=== PATIENT | male | born 1965 | race African-American/Black ===

== ENCOUNTER 2021-03-27 15:32 | Observation (INO) | payer SELFPAY ==
[2021-03-27] VITALS (14 sets, daily range): BP systolic 112–158; BP diastolic 83–98; PULSE 67–89; RESP 14–20; TEMP 36.4–36.7; O2SAT 98–100; BMI 33.5
--- NOTE | ~2021-03-27 | CT_ITS ---
EXAMINATION: CT abdomen pelvis w con DATE: 03/27/2021 17:32 INDICATION: Generalized abdominal pain. Dark tarry stools. Diarrhea. TECHNIQUE: Computed tomography (CT) of the abdomen and pelvis was performed with 100 cc Omnipaque 350 intravenous contrast. Automated exposure control and iterative reconstruction technique were employe d. Exam dose: 746.64 mGy-cm total exam DLP. COMPARISON: None. FINDINGS: The lung bases are clear. Normal heart size. No pericardial or pleural effusion. The liver, spleen, pancreas, and adrenal glands are unremarkable. Duplicated right kidney. The upper and lower pole ureters unite at the L4 level. Approximately 7 mm u pper pole right renal probable cyst 3.5 cm left renal cystic lesion with attenuation of 14 Hounsfield units. The margins are not sharp th roughout this lesion. Further evaluation is recommended by left renal ultrasound or MR examination. No urinary tract calculus or hydroureteronephrosis. Normal caliber of the abdominal aorta. No intraperitoneal or retroperitoneal or pelvic mass lesion or adenopathy or ascites. Normal appendix. There is a prominent amount of fecal material in the colon but no bowel obstruction. No bowel wall thickening, pneumatosis or intraperitoneal free air is detected. Moderate prostatomegaly. Urinary bladder is unremarkable. Small fat-containing umbilical hernia. Prominent degenerative spurring of the lower thoracic spine. No suspicious osteolytic or osteoblastic lesions are noted. IMPRESSION: 3.5 cm cystic lesion of left kidney; the margins are not sharply defined throughout the lesion; further evaluation by left renal ultrasound or MR examination is recommended Duplicated right kidney 7 mm upper pole right renal probable cyst Moderate prostate enlargement Reviewed, dictated and finalized at [facility]. Reviewed, dictated and finalized at location [facility]. IMPRESSION: 3.5 cm cystic lesion of left kidney; the margins are not sharply d efined throughout the lesion; further evaluation by left renal ultrasound or MR examination is recommended Duplicated right kidney 7 mm upper pole right renal probable cyst Moderate prostate enlargement
--- NOTE | ~2021-03-27 | US_ITS ---
EXAMINATION: US renal BI DATE: 03/28/2021 11:45 INDICATION: Renal cyst TECHNIQUE: Multiple ultrasound grayscale images of the kidneys were obtained. COMPARISON: CT dated 03/27/2021 FINDINGS: The right kidney measures 10.1 x 5.2 x 5.0 cm. The left kidney measures 9.3 x 6.4 x 5.6 cm. The kidne ys demonstrate normal echogenicity. 3.3 cm simple appearing cyst in the left kidney with smooth perip heral gunderson with no evident internal septations or soft tissue component. There is no hydronephrosis in either kidney. No stones identified. The bladder appears normal but is incompletely distended whi ch limits evaluation.. IMPRESSION: 1. 3.3 cm simple left renal cyst. Otherwise unremarkable study. Reviewed, dictated and finalized at location [facility].
--- NOTE | ~2021-03-27 | XR_ITS ---
XR chest 2V DATE: 03/27/2021 17:34 INDICATION: Midsternal chest pain, shortness of breath for 4 weeks, worsening last night TECHNIQUE: PA and lateral views COMPARISON: 06/30/2018 two-view chest FINDINGS: Heart size is within normal range. No hilar or mediastinal enlargement. No pulmonary infilt rate or consolidation, pleural effusion or pulmonary vascular congestion or pneumothorax. IMPRESSION: No active cardiac pulmonary disease Reviewed, dictated and finalized at location [facility].
--- NOTE | 2021-03-27 15:47 | ECG_ITS ---
Measurements Intervals [place] Rate: 86 P: 30 MS: 148 QRS: 7 QRSD: 89 T: 57 QT: 358 QTc: 430 Interpretive Statements SINUS RHYTHM DELAYED PRECORDIAL R/S TRANSITION NONSPECIFIC T-WAVE ABNORMALITY- HIGH LATERAL LEADS BORDERLINE ECG Electronically Signed On 03-27-2021 16:13:03 CDT by Parvez Bryson D.O.
[2021-03-27 16:16] LABS: Basophils Percent Auto 0.3 % (0.2-1.2); Eosinophils Absolute Auto 0.1 K/mm3 (0-0.3); Eosinophils Percent Auto 0.7 % (0-4.4); Hematocrit 35.9 % (42.0-52.0); Hemoglobin 12.3 g/dL (14.0-18.0); Immature Granulocyte Absolute 0.03 K/mm3 (0.00-0.031); Immature Granulocyte Percent A 0.4 % (0-0.5); Lymphocytes Absolute Auto 2.33 K/mm3 (0.9-3.2); Lymphocytes Percent Auto 31.1 % (18.3-44.2); Mean Corpuscular HGB Conc 34.3 g/dl (32-36); Mean Corpuscular Hemoglobin 30.4 pg (26-34); Mean Corpuscular Volume 88.9 fl (80-100); Mean Platelet Volume 11.9 fl (7.4-10.4); Monocytes Absolute Auto 0.6 K/mm3 (0.1-0.6); Monocytes Percent Auto 7.6 % (2.6-8.5); Neutrophils Absolute Auto 4.5 K/mm3 (1.3-6.7); Neutrophils Percent Auto 59.9 % (45.5-73.1); Platelet Count Result 204 k/mm3 (150-375); Red Blood Count 4.04 M/mm3 (4.6-6.20); Red Cell Distribution Width 14.3 % (11.5-14.5); White Blood Count 7.5 K/mm3 (4.5-10.0)
[2021-03-27 16:28] LABS: Alanine Aminotransferase 21 U/L (4-50); Albumin Level 4.1 g/dL (3.5-5.1); Alkaline Phosphatase 48 U/L (38-126); Anion Gap 6 mmol/L (8-16); Aspartate Amino Transferase 24 U/L (17-59); Bilirubin,Total < 0.1 mg/dL (0.2-1.3); Blood Urea Nitrogen 23 mg/dL (9-20); Calcium 9.1 mg/dL (8.4-10.2); Carbon Dioxide 28 mmol/L (22-30); Chloride 104 mmol/L (98-107); Estimated CRCL calculation 80 ml/min; Estimated Glomerular Filt Rate > 60; Glucose 123 mg/dL (65-110); Potassium 3.9 mmol/L (3.4-5.0); Sodium 138 mmol/L (137-145)
[2021-03-27 16:45] LABS: Troponin I < 0.012 ng/mL (0.000-0.034)
[2021-03-27] MEDS: SODIUM CHLORIDE 0.9% IV 1,000 ML 999 ML IV CONT (16:50)
[2021-03-27] MEDS: PANTOPRAZOLE SODIUM IV 40 MG VIAL 80 MG IV PUSH (16:50)
[2021-03-27 18:12] LABS: Lipase 222 U/L (23-300)
--- NOTE | 2021-03-27 19:58 | PC.NURSE ---
Stool sample does not need to be sent to lab per ER PA, hemacult stool sample done at bedside.
--- NOTE | 2021-03-27 20:10 | ED.GENADULT ---
HPI - General Adult General Chief complaint: Syncope <Annelise Miller PA-C - Last Filed: 03/27/21 20:52> Stated complaint: rectal bleeding <Annelise Miller PA-C - Last Filed: 03/27/21 20:52> Time Seen by Provider: 03/27/21 16:08 <Annelise Miller PA-C - Last Filed: 03/27/21 20:52> Source: patient and family () <FELISA Javed Last Filed: 03/27/21 20:52> Mode of arrival: ambulatory <Annelise Miller PA-C - Last Filed: 03/27/21 20:52> History of Present Illness HPI narrative: Patient presents with chief complaint of dark tarry stools over the past 2 to 3 days. Patient states yesterday he saw his primary care Dr. Roberts regarding his symptoms and a he stated he was going to refer him to a GI specialist but if his symptoms increase or worsen to come to the emergency department. Patient states today he feels weak and short of breath with a headache when he went to stand so his brought him to the emergency department. He states that he has had 2-3 large dark tarry stools. He reports pain to his epigastric area that is intermittent. He states the pain worsens when he eats. Patient denies history of GI bleeding. <Annelise Miller PA-C - Last Filed: 03/27/21 20:52> Related Data Home medications: Home Medications Medication Instructions Recorded Confirmed Miralax 1 packet PO DAILY 03/27/21 03/27/21 hydrochlorothiazide 25 mg PO DAILY 03/27/21 03/27/21 naproxen sodium [Aleve] 220 mg PO BID PRN 03/27/21 03/27/21 <FELISA Javed Last Filed: 03/27/21 20:52> Allergies/adverse reactions: Allergies Allergy/AdvReac Type Severity Reaction Status Date / Time No Known Allergies Allergy Unverified 06/13/18 10:21 <FELISA Javed Last Filed: 03/27/21 20:52> Review of Systems Review of Systems: CONSTITUTIONAL: Denies fever, chills, or sweats. EYES: Denies visual changes, redness, or discharge. ENT: Denies rhinorrhea, congestion, sore throat, or otalgia. CARDIOVASCULAR: Denies chest pain, palpitations, or edema. RESPIRATORY: Denies cough or dyspnea. GASTROINTESTINAL: Reports dark-colored stool Denies abdominal pain, nausea, vomiting, or diarrhea. GENITOURINARY: denies dysuria or hematuria. SKIN: Denies rash or itching. MUSCULOSKELETAL: Denies back pain, joint pain, or myalgia. NEUROLOGIC: Denies headache, numbness, dizziness, or weakness. PSYCHIATRIC: Denies anxiety or depression. <Annelise Miller PA-C - Last Filed: 03/27/21 20:52> [facility] Family History Family History: Family History (Updated 03/27/21 @ 22:23 by Janette Sharma RN) Other Unknown family medical history <Annelise Miller PA-C - Last Filed: 03/27/21 20:52> Social History Social History: Social History Smoking status: Never smoker Alcohol intake: never Substance use: never Substance use type: does not use Spiritual care concerns: No <Annelise Miller PA-C - Last Filed: 03/27/21 20:52> Exam Narrative: GENERAL: Well-appearing, well-nourished, and in no acute distress. HEAD: Normocephalic, atraumatic. EYES: PERRLA and EOMI. NECK: Supple. No adenopathy or masses. No carotid bruits or JVD CHEST: Clear to auscultation. No respiratory distress. No wheezes rales or rhonchi HEART: Regular rate and rhythm. No murmur heard. Normal peripheral pulses. ABDOMEN: Soft, nontender to palpation, nondistended, normal active bowel sounds. Hemoccult stool positive EXTREMITIES: Normal range of motion. No edema. SKIN: Warm, dry, no rash. NEURO: No focal deficits. Alert and oriented x3. PSYCH: Normal mood and affect. <Annelise Miller PA-C - Last Filed: 03/27/21 20:52> Course HEAD OF MATHEMATICS/PA Physician Supervision For this patient encounter, I reviewed the HEAD OF MATHEMATICS or PA documentation, treatment plan, and medical decision making; and I had [id number] time with this patient; sx most c/w ugib <Paramjit Gambino MD - Last Filed: 03/28/21 01:16> Vital Signs Vital signs: Vit
--- NOTE | 2021-03-27 21:31 | PM.IMHP ---
H&P: HPI History of Present Illness Date/Time: 03/27/21 21:31 Chief Complaint: Dark stools Narrative: This is a 56-year-old male with past medical history significant for hypertension. Patient presented to the emergency room due to 5 episodes of black tarry stools that started the day before. Patient states that he felt lightheaded dizzy and had to lay it in the bathroom floor he denies any hematemesis any epistaxis any hematochezia, he has been taking Aleve at home. He denies any nausea or vomiting has epigastric abdominal pain ,has had good appetite, no changes in stool character ,no weight loss ,no alcohol intake or tobacco use ,denies any syncope ,denies any fevers ,chills or rigors ,no cough ,no sputum production ,no shortness of breath. Preliminary workup shows a hemoglobin of 12 down from 17 from 2018 rest of workup has been essentially nonrevealing. Review of Systems Review of Systems: Black tarry stools Constitutional: Constitutional: Denies chills, Denies fatigue, Denies fever(s), Denies lethargy, Denies malaise, Denies poor appetite, Denies weakness and Denies weight loss Eyes: Eyes: Denies change in vision ENT: Denies dysphagia, Reports dizziness, Denies epistaxis, Denies nasal congestion, Denies nasal discharge, Denies nasal obstruction and Denies odynophagia Cardiovascular: Cardiovascular: Denies irregular heart rhythm, Denies claudication, Reports lightheadedness, Denies radiating jaw, neck or arm pain, Denies palpitations, Denies dyspnea, Denies dyspnea on exertion and Denies orthopnea Respiratory: Respiratory: Denies cough and Denies dyspnea Gastrointestinal: Gastrointestinal: Reports abdominal pain (Epigastric), Reports melena, Denies hematochezia, Denies change in bowel habits, Denies coffee ground emesis, Denies GI cramping, Denies dyspepsia, Denies heartburn, Denies diarrhea, Denies nausea and Denies vomiting Genitourinary: Genitourinary: Reports no additional male genitourinary complaints Musculoskeletal: Musculoskeletal: Reports no additional musculoskeletal complaints Integumentary/Breasts: Skin/Breast: Reports system reviewed and no additional complaints, except as docu Neurologic: Reports system reviewed and no additional complaints, except as documented Psychiatric: Psychiatric: Reports no additional psychiatric complaints Endocrine: Endocrine: Reports no additional endocrine complaints Hematologic/Lymphatic: Hematologic/Lymphatic: Reports no additional hematologic/lymphatic complaints Allergic/Immunologic: Allergic/Immunologic: Reports no additional allergic/immunologic complaints [facility] Family History Family History (Updated 03/27/21 @ 22:23 by Janette Sharma RN) Other Unknown family medical history Social History Social History Smoking status: Never smoker Alcohol intake: never Substance use: never Substance use type: does not use Spiritual care concerns: No Meds Home Medications and Allergies Home Medications Medication Instructions Recorded Confirmed Type Miralax 1 packet PO DAILY 03/27/21 03/27/21 History hydrochlorothiazide 25 mg PO DAILY 03/27/21 03/27/21 History naproxen sodium [Aleve] 220 mg PO BID PRN 03/27/21 03/27/21 History Allergies Allergy/AdvReac Type Severity Reaction Status Date / Time No Known Allergies Allergy Unverified 06/13/18 10:21 Vital Signs Vital Signs - 24 hr 03/27/21 15:44 03/27/21 16:45 03/27/21 17:20 Temperature 98.0 F Pulse Rate 89 87 80 Respiratory Rate 18 14 Blood Pressure 112/86 140/98 H Pulse Oximetry 99 99 03/27/21 17:45 03/27/21 18:10 03/27/21 18:11 Temperature Pulse Rate 83 78 85 Respiratory Rate 14 Blood Pressure 145/95 H 147/85 H 134/89 Pulse Oximetry 99 03/27/21 18:14 03/27/21 19:09 03/27/21 20:50 Temperature Pulse Rate 83 80 74 Respiratory Rate 14 14 Blood Pressure 147/95 H 144/83 H 155/95 H Pulse Oximetry 98 98 Exam Narrative: Laying in [place] Const:
--- NOTE | 2021-03-27 22:17 | ADMGEN ---
This patient, Chanell Smith, was admitted to 2 Medical Room 241-. Patient/family oriented to hospital policies and general routines including ID bracelet, bed and alarms, visiting hours, pain management, procedures, bathroom and other care routines, personal items, smoking policy, room service/diet, and visiting hours. Information on how to activate the Rapid Response Team has been discussed. Patient/Family are encouraged to report perceived risks to care and to ask questions if they do not understand what they are told or what they should do.
--- NOTE | 2021-03-27 23:23 | PC.NURSE ---
PT GIVING ME SHORT RESPONSES WHEN ATTEMPTING TO OBTAIN MEDICAL HISTORY, LANGUAGE BARRIER AND SEEMED TO BE ANNOYED BY MY QUESTIONS. DENIED ANY SIGNIFICANT MEDICAL HISTORY OR SYMPTOMS RELATED TO HIS CURRENT HOSPITALIZATION.
[2021-03-28] VITALS (8 sets, daily range): BP systolic 98–151; BP diastolic 60–92; PULSE 62–90; RESP 16–18; TEMP 36.1–36.9; O2SAT 98–100
[2021-03-28] MEDS: HYDROmorphone HCL INJ (*CRX) 1 MG/ML SYR 0.5 MG IV PUSH (01:51)
[2021-03-28 05:35] LABS: Hematocrit 34.2 % (42.0-52.0); Hemoglobin 11.6 g/dL (14.0-18.0)
--- NOTE | 2021-03-28 07:03 | WPDGICN ---
Assessment and Plan Assessment and plan (1) Acute GI bleeding: Code(s): K92.2 - Gastrointestinal hemorrhage, unspecified Status: Acute Assessment and Plan: Patient admitted the hospital with evidence for GI bleeding for 2 days with black melenic stools. His hemoglobin of 12 is felt to be stable however his previous blood work revealed a hemoglobin is 17 several years ago. Plan is for EGD to assess more thoroughly. Hemoglobin will be monitored. He will be kept on PPI therapy in the interim. GI Consult Note Consult date/time: 03/28/21 07:03 HPI: Chanell Smith is a 56 year old male Admitted to the hospital with melenic stools. Patient in usual state of health till Wednesday when he became acutely short of breath. He had weakness on exertion. Apparently had a near syncopal episode. His stools became blackish and this persisted. For this reason he came to the emergency room last evening. He was found to have a hemoglobin of 12. Vital signs were stable. But he had very dark tardy black melenic stools. Patient was subsequently admitted the hospital for evaluation. Patient denies abdominal pain but admits to a vague epigastric discomfort. His past medical history is noncontributory. Family history is noncontributory. He denies alcohol use. He does admit to occasional Naprosyn. He takes MiraLax for occasional constipation. Review of Systems Review of Systems: All systems reviewed & are unremarkable except as noted in HPI and below [facility] Family History Family History (Updated 03/27/21 @ 22:23 by Janette Sharma RN) Other Unknown family medical history Social History Social History Smoking status: Never smoker Alcohol intake: never Substance use: never Substance use type: does not use Spiritual care concerns: No Meds Home Medications and Allergies Home Medications Medication Instructions Recorded Confirmed Type Miralax 1 packet PO DAILY 03/27/21 03/27/21 History hydrochlorothiazide 25 mg PO DAILY 03/27/21 03/27/21 History naproxen sodium [Aleve] 220 mg PO BID PRN 03/27/21 03/27/21 History Allergies Allergy/AdvReac Type Severity Reaction Status Date / Time No Known Allergies Allergy Unverified 06/13/18 10:21 Vital Signs Vital Signs - 24 hr 03/27/21 15:44 03/27/21 16:45 03/27/21 17:20 Temperature 98.0 F Pulse Rate 89 87 80 Respiratory Rate 18 14 Blood Pressure 112/86 140/98 H Pulse Oximetry 99 99 03/27/21 17:45 03/27/21 18:10 03/27/21 18:11 Temperature Pulse Rate 83 78 85 Respiratory Rate 14 Blood Pressure 145/95 H 147/85 H 134/89 Pulse Oximetry 99 03/27/21 18:14 03/27/21 19:09 03/27/21 20:50 Temperature Pulse Rate 83 80 74 Respiratory Rate 14 14 Blood Pressure 147/95 H 144/83 H 155/95 H Pulse Oximetry 98 98 03/27/21 21:16 03/27/21 21:31 03/27/21 21:46 Temperature Pulse Rate 70 67 71 Respiratory Rate 20 15 15 Blood Pressure 155/97 H 137/90 145/87 H Pulse Oximetry 98 99 99 03/27/21 22:21 03/27/21 22:34 03/28/21 02:59 Temperature 97.5 F L 98.2 F Pulse Rate 78 78 63 Respiratory Rate 17 17 17 Blood Pressure 158/96 H 122/71 Pulse Oximetry 100 100 99 Exam Narrative: Physical exam reveals Vital Signs be stable. HEENT exam is unremarkable. Patient is anicteric. Lungs are clear to auscultation and percussion. Heart is without murmur or extra sounds. Abdominal exam bowel sounds are present soft nontender with no organomegaly. Digital external rectal exam is normal. Results Labs CBC & Chem 7: 03/28/21 04:46 03/27/21 16:06 Labs: Short CBC 03/27/21 03/28/21 Range/Units 16:06 04:46 WBC 7.5 (4.5-10.0) K/mm3 Hgb 12.3 L 11.6 L (14.0-18.0) g/dL Hct 35.9 L 34.2 L (42.0-52.0) % Plt Count 204 (150-375) k/mm3 [facility] 03/27/21 16:06 Sodium 138 Potassium 3.9 Chloride 104 Carbon Dioxide 28 BUN 23 H Creatinine 0.90 Glucose 123 H Calc
[2021-03-28] MEDS: LACTATED RINGERS 1,000 ML 150 ML IV CONT (13:20)
--- NOTE | 2021-03-28 13:25 | WPDANESEPP ---
Anes - Eval Pre Procedure Procedure: Operation Date: 03/28/21 14:00 Proposed Procedures p Esophagogastroduodenoscopy - Paramjit Izquierdo MD Date/Time: 03/28/21 13:25 Pre Op Diagnosis: GI Bleed Patient Data Age: 56 Gender: M Height: 1.68 m Weight: 94.2 kg Last Vital Signs Temp 97 F L 03/28/21 13:14 Pulse 76 03/28/21 13:14 Resp 18 03/28/21 13:14 BP 151/91 H 03/28/21 13:14 Pulse Ox 100 03/28/21 13:14 Allergies Allergy/AdvReac Type Severity Reaction Status Date / Time No Known Allergies Allergy Verified 03/28/21 13:12 Home Medications Medication Instructions Recorded Confirmed Type Miralax 1 packet PO DAILY 03/27/21 03/27/21 History hydrochlorothiazide 25 mg PO DAILY 03/27/21 03/27/21 History naproxen sodium [Aleve] 220 mg PO BID PRN 03/27/21 03/27/21 History Laboratory Tests 03/27/21 03/27/21 03/27/21 16:06 16:06 16:06 WBC 7.5 K/mm3 K/mm3 (4.5-10.0) RBC 4.04 M/mm3 L M/mm3 (4.6-6.20) Hgb 12.3 g/dL L g/dL (14.0-18.0) Hct 35.9 % L % (42.0-52.0) MCV 88.9 fl fl (80-100) MCH 30.4 pg pg (26-34) MCHC 34.3 g/dl g/dl (32-36) RDW 14.3 % % (11.5-14.5) Plt Count 204 k/mm3 k/mm3 (150-375) MPV 11.9 fl H fl (7.4-10.4) Immature Gran % (Auto) 0.4 % % (0-0.5) Neut % (Auto) 59.9 % % (45.5-73.1) Lymph % (Auto) 31.1 % % (18.3-44.2) [place] % (Auto) 7.6 % % (2.6-8.5) Eos % (Auto) 0.7 % % (0-4.4) Baso % (Auto) 0.3 % % (0.2-1.2) Lymph # (Auto) 2.33 K/mm3 K/mm3 (0.9-3.2) [place] # (Auto) 0.6 K/mm3 K/mm3 (0.1-0.6) Eos # (Auto) 0.1 K/mm3 K/mm3 (0-0.3) Baso # (Auto) 0.0 K/mm3 K/mm3 (0.0-0.1) Abs Immat Gran (auto) 0.03 K/mm3 K/mm3 (0.00-0.031) Absolute Neuts (auto) 4.5 K/mm3 K/mm3 (1.3-6.7) Absolute Nucleated RBC 0.0 K/mm3 K/mm3 (0.0-0.012) Nucleated RBC % 0.0 % % (0.0-0.2) Sodium 138 mmol/L mmol/L (137-145) Potassium 3.9 mmol/L mmol/L (3.4-5.0) Chloride 104 mmol/L mmol/L (98-107) Carbon Dioxide 28 mmol/L mmol/L (22-30) Anion Gap 6 mmol/L L mmol/L (8-16) BUN 23 mg/dL H mg/dL (9-20) Creatinine 0.90 mg/dL mg/dL (0.7-1.3) Estim Creat Clear Calc 80 ml/min ml/min Estimated GFR > 60 (59 - ) Glucose 123 mg/dL H mg/dL (65-110) Calcium 9.1 mg/dL mg/dL (8.4-10.2) Total Bilirubin Direct Bilirubin AST ALT Alkaline Phosphatase Troponin I Total Protein Albumin Lipase 222 U/L U/L (23-300) Blood Type Antibody Screen 03/27/21 03/27/21 03/27/21 16:06 16:06 16:06 WBC RBC Hgb Hct MCV MCH MCHC RDW Plt Count MPV Immature Gran % (Auto) Neut % (Auto) Lymph % (Auto) [place] % (Auto) Eos % (Auto) Baso % (Auto) Lymph # (Auto) [place] # (Auto) Eos # (Auto) Baso # (Auto) Abs Immat Gran (auto) Absolute Neuts (auto) Absolute Nucleated RBC Nucleated RBC % Sodium Potassium Chloride Carbon Dioxide Anion Gap BUN Creatinine Estim Creat Clear Calc Estimated GFR Glucose Calcium Total Bilirubin < 0.1 mg/dL L mg/dL (0.2-1.3) Direct Bilirubin 0.0 mg/dL mg/dL (0-0.3) AST 24 U/L U/L (17-59) ALT 21 U/L U/L (4-50) Alkaline Phosphatase 48 U/
--- NOTE | 2021-03-28 14:09 | SUR.PHASEII ---
Dr Izquierdo aware of positive hpylori, rapid urease
--- NOTE | 2021-03-28 14:33 | PC.NURSE ---
Returned from GI Lab. Report received from [ Marni].
--- NOTE | 2021-03-28 15:49 | PM.IMPN ---
Progress Note: A&P Assessment and Plan (1) Duodenal ulcer: Code(s): K26.9 - Duodenal ulcer, unspecified as acute or chronic, without hemorrhage or perforation Status: Acute Assessment and Plan: patient was noted to have a duodenal ulcer on EGD and was cauterized by Dr. Izquierdo - H pylori positive, Dr. Izqueirdo has started antibiotics and PPI therapy. Plan to continue such for 2 weeks - I spoke with the patient about the plan of care. He is agreeable to stay overnight to monitor his hemoglobin. If he has no further melena or drop in hemoglobin overnight, he can be discharged in the morning - he has no lightheadedness, dizziness or chest pain at this time - will increase diet for dinner and see how he tolerates it - would recommend stopping NSAIDs at discharge (2) H pylori ulcer: Code(s): K27.9 - Peptic ulcer, site unspecified, unspecified as acute or chronic, without hemorrhage or perforation; B96.81 - Helicobacter pylori [H. pylori] as the cause of diseases classified elsewhere Status: Acute Assessment and Plan: as above (3) Acute GI bleeding: Code(s): K92.2 - Gastrointestinal hemorrhage, unspecified Status: Acute Assessment and Plan: as above (4) Essential hypertension: Code(s): I10 - Essential (primary) hypertension Status: Acute Assessment and Plan: last blood pressure 146/92 - restart hydrochlorothiazide (5) Renal cyst: Code(s): N28.1 - Cyst of kidney, acquired Status: Acute Assessment and Plan: CT showed an abnormal cyst like structure and ultrasound was done which showed a simple cyst. No further workup indicated at this time Time Spent With Patient Time with patient: 25 - 35 minutes Subjective Date/time seen: 03/28/21 15:49 Interval history: Pt is a 56-year-old male here for GI bleed. Patient was seen this morning and this afternoon and is feeling well. He has not ate anything yet but is doing okay. He has not had any further melena since last night. Spoke with him about the plan care and he is agreeable to stay overnight to ensure he tolerates a diet and his hemoglobin remained stable since he had a bleeding ulcer found on EGD. I spoke with Dr. Izquierdo about the plan. Patient denies chest pain, shortness of breath, fevers, chills, nausea or vomiting. Review of Systems Review of Systems: All systems reviewed & are unremarkable except as noted in HPI and below Exam Narrative: General: Well developed well nourished patient in NAD HEENT: normocephalic Neck: supple Neuro: Alert and oriented x4 CV:RRR Resp:CTA Abd: Soft, non distended. No pain to palpation. Positive bowel sounds Extremities: No swelling, erythema, or pain to palpation. Objective Data Vital Signs Vital Signs: Vital Signs - 24 hr 03/27/21 16:45 03/27/21 17:20 03/27/21 17:45 Temperature Pulse Rate 87 80 83 Respiratory Rate 14 14 Blood Pressure 140/98 H 145/95 H Pulse Oximetry 99 99 03/27/21 18:10 03/27/21 18:11 03/27/21 18:14 Temperature Pulse Rate 78 85 83 Respiratory Rate Blood Pressure 147/85 H 134/89 147/95 H Pulse Oximetry 03/27/21 19:09 03/27/21 20:50 03/27/21 21:16 Temperature Pulse Rate 80 74 70 Respiratory Rate 14 14 20 Blood Pressure 144/83 H 155/95 H 155/97 H Pulse Oximetry 98 98 98 03/27/21 21:31 03/27/21 21:46 03/27/21 22:21 Temperature 97.5 F L Pulse Rate 67 71 78 Respiratory Rate 15 15 17 Blood Pressure 137/90 145/87 H 158/96 H Pulse Oximetry 99 99 100 03/27/21 22:34 03/28/21 02:59 03/28/21 10:22 Temperature 98.2 F Pulse Rate 78 63 Respiratory Rate 17 17 Blood Pressure 122/71 Pulse Oximetry 100 99 99 03/28/21 13:14 03/28/21 13:45 03/28/21 13:55 Temperature 97 F L Pulse Rate 76 90 84 Respiratory Rate 18 18 16 Blood Pressure 151/91 H 98/65 L 99/60 L Pulse Oximetry 100 100 100 03/28/21 14:05 03/28/21 15:00 Temperature 9
[2021-03-28] MEDS: hydroCHLOROthiazide 25 MG TABLET PO (16:39)
[2021-03-28] MEDS: PANTOPRAZOLE 40 MG TABLET PO (19:42)
[2021-03-28] MEDS: CLARITHROMYCIN 500 MG TABLET PO (19:42)
[2021-03-28] MEDS: AMOXICILLIN 500 MG CAPSULE 1000 MG PO (19:42)
[2021-03-29 04:48] VITALS: BP 133/85; PULSE 62; RESP 16; TEMP 37.2; O2SAT 100
[2021-03-29 05:44] LABS: Hematocrit 35.2 % (42.0-52.0); Hemoglobin 12.2 g/dL (14.0-18.0)
[2021-03-29] MEDS: hydroCHLOROthiazide 25 MG TABLET PO (08:27)
[2021-03-29] MEDS: AMOXICILLIN 500 MG CAPSULE 1000 MG PO (08:27)
[2021-03-29] MEDS: PANTOPRAZOLE 40 MG TABLET PO (08:27)
[2021-03-29] MEDS: CLARITHROMYCIN 500 MG TABLET PO (08:27)
--- NOTE | 2021-03-29 09:51 | PM.DS ---
DS: Admitting Diagnosis Discharge Date Today Admitting Diagnosis GI bleed DS: Discharge Diagnosis Discharge Diagnosis (1) Duodenal ulcer: Code(s): K26.9 - Duodenal ulcer, unspecified as acute or chronic, without hemorrhage or perforation Status: Acute Assessment and Plan: patient was noted to have a duodenal ulcer on EGD and was cauterized by Dr. Izquierdo - H pylori positive, Dr. Izquierdo has started antibiotics and PPI therapy. Plan to continue such for 2 weeks - I spoke with the patient about the plan of care. He is agreeable to stay overnight to monitor his hemoglobin. If he has no further melena or drop in hemoglobin overnight, he can be discharged in the morning - he has no lightheadedness, dizziness or chest pain at this time - will increase diet for dinner and see how he tolerates it - would recommend stopping NSAIDs at discharge (2) H pylori ulcer: Code(s): K27.9 - Peptic ulcer, site unspecified, unspecified as acute or chronic, without hemorrhage or perforation; B96.81 - Helicobacter pylori [H. pylori] as the cause of diseases classified elsewhere Status: Acute Assessment and Plan: as above (3) Acute GI bleeding: Code(s): K92.2 - Gastrointestinal hemorrhage, unspecified Status: Acute Assessment and Plan: as above (4) Essential hypertension: Code(s): I10 - Essential (primary) hypertension Status: Acute Assessment and Plan: last blood pressure 146/92 - restart hydrochlorothiazide (5) Renal cyst: Code(s): N28.1 - Cyst of kidney, acquired Status: Acute Assessment and Plan: CT showed an abnormal cyst like structure and ultrasound was done which showed a simple cyst. No further workup indicated at this time DS: Summary Hospital Course Hospital Course: Un eventful Time Spent with Patient Time attestation: 56 years old male was to the emergency with complaints of having abdominal pain patient was found to have low hemoglobin. GI services consulted perform endoscopy that showed patient did not alter. Patient was given medication and hemoglobin was stabilized. Patient did not have any complication during stay in the hospital. Today patient is feeling better patient was discharged home stable condition. Will monitor CBC as an outpatient. Follow-up scheduled with primary care and GI service outpatient next week. Exam Narrative: General: Well developed well nourished patient in NAD HEENT: normocephalic Neck: supple Neuro: Alert and oriented x4 CV:RRR Resp:CTA Abd: Soft, non distended. No pain to palpation. Positive bowel sounds Extremities: No swelling, erythema, or pain to palpation. Const: General: cooperative, comfortable, no acute distress, well developed, alert, awake and other (Well-appearing) Nutritional Appearance: average body habitus and well nourished Orientation/consciousness: patient oriented x3 HENMT: Head: normal to inspection, normocephalic and atraumatic Ears: hearing grossly normal bilaterally General nose exam: Normal external nose present Face and sinus: normal facial exam Mouth: Yes Normal oral and palatal mucosa present Eyes: General: appearance normal, both eyes and all related structures Alignment and Position: alignment normal Sclera: sclerae normal Pupils: Equal, round and reactive pupils present EOM: EOMs intact bilaterally Neck: Neck: normal visual inspection, full ROM, no lymphadenopathy, supple and no JVD Thyroid: thyroid normal Lymphatic: no lymphadenopathy noted Chest: Chest palpation & inspection: normal inspection of the chest and normal palpation of entire chest wall Resp: Effort & Inspection: normal respiratory effort and able to speak in complete sentences Auscultation: clear to auscultation bilaterally Cardio: Jugular venous distension: no JVD Palpation: normal PMI Rate: regular rate Rhythm: regular rhythm Heart sounds: S1 normal heart sound pres
--- NOTE | 2021-03-29 12:11 | WPDGIPROGNO ---
Progress Note: A&P Assessment and Plan (1) Duodenal ulcer: Code(s): K26.9 - Duodenal ulcer, unspecified as acute or chronic, without hemorrhage or perforation Status: Acute Assessment and Plan: treated endoscopically yesterday, no more signs of bleeding he can go home with protonix, also complete treatment for H pylori for 2 weeks (2) H pylori ulcer: Code(s): K27.9 - Peptic ulcer, site unspecified, unspecified as acute or chronic, without hemorrhage or perforation; B96.81 - Helicobacter pylori [H. pylori] as the cause of diseases classified elsewhere Status: Acute Assessment and Plan: prescribed treatmend follow-up office in ~ 2 months, then we can repeat H pylori Ag in stool to document eradication (3) Acute GI bleeding: Code(s): K92.2 - Gastrointestinal hemorrhage, unspecified Status: Acute (4) Acute blood loss anemia: Code(s): D62 - Acute posthemorrhagic anemia Status: Acute Assessment and Plan: hb stable. Subjective Date/time seen: 03/29/21 12:11 Interval history: he is feeling better, tolerated diet and no more bleeding. EGD yesterday by Dr Izquierdo with DU treated with bicap, also + H pylori Review of Systems Review of Systems: All systems reviewed & are unremarkable except as noted in HPI and below Exam Const: General: comfortable and no acute distress HENMT: General nose exam: Normal nares present Eyes: General: appearance normal, both eyes and all related structures Neck: Neck: no JVD Resp: Auscultation: clear to auscultation bilaterally Cardio: Rate: regular rate Rhythm: regular rhythm GI: Inspection: non-distended GI Palp: Yes Soft to palpation and No Guarding due to palpation present (GI) Auscultation: normal bowel sounds Skin: General skin exam: normal color Neuro: Speech: normal speech Motor exam (neuro): Normal motor muscle tone present throughout Extrem: General: normal to inspection Psych: Mental Status: mental status grossly normal Objective Data Vital Signs Vital Signs: Vital Signs - 24 hr 03/28/21 13:14 03/28/21 13:45 03/28/21 13:55 Temperature 97 F L Pulse Rate 76 90 84 Respiratory Rate 18 18 16 Blood Pressure 151/91 H 98/65 L 99/60 L Pulse Oximetry 100 100 100 03/28/21 14:05 03/28/21 15:00 03/28/21 21:16 Temperature 97.4 F L 98.5 F Pulse Rate 62 69 90 Respiratory Rate 16 16 16 Blood Pressure 111/67 146/92 H 148/81 H Pulse Oximetry 100 100 98 03/29/21 04:48 Temperature 98.9 F Pulse Rate 62 Respiratory Rate 16 Blood Pressure 133/85 Pulse Oximetry 100 Intake/Output Intake/Output: Intake & Output 03/26/21 03/27/21 03/28/21 03/29/21 23:59 23:59 23:59 23:59 Intake Total 1000 530 320 Output Total 800 Balance 1000 -270 320 Meds/Results Medications: Active Medications Generic Name Dose Route Start Last Admin Trade Name Freq PRN Reason Stop Dose Admin Amoxicillin 1,000 mg 03/28/21 21:00 03/29/21 08:27 Amoxicillin 500 Mg Capsule PO 1,000 mg Q12HR GONZALO Administration Clarithromycin 500 mg 03/28/21 21:00 03/29/21 08:27 Clarithromycin 500 Mg Tablet PO 500 mg Q12HR GONZALO Administration Clarithromycin 500 mg 03/29/21 21:00 Clarithromycin 500 Mg Tablet PO Q12HR GONZALO Hydrochlorothiazide 25 mg 03/28/21 15:55 03/29/21 08:27 Hydrochlorothiazide 25 Mg Tablet PO 25 mg DAILY GONZALO Administration Hydromorphone HCl 0.5 mg 03/27/21 20:50 03/28/21 01:51 Hydromorphone Hcl Inj (*Crx) 1 Mg/Ml Syr IV PUSH 0.5 mg Q4H PRN Administration Pain Rated 7-10 Pantoprazole Sodium 40 mg 03/28/21 21:00 03/29/21 08:27 Pantoprazole 40 Mg Tablet PO 40 mg Q12HR GONZALO Administration Pantoprazole Sodium 40 mg 03/30/21 09:00 Pantoprazole 40 Mg Tablet PO QAM [facility] Radiology Results: ITS Impressions Chest X-Ray 03/27/21 17:46 IMPRESSION: No active cardiac pulmonary disease Abdomen/Pelvis CT 03/27/21 18:15 JED
== END 2021-03-29 13:09 | disposition home or self-care (01) ==
LOC: ANHED 20:45 → ANH2MED 21:30
PROVIDERS: Emergency Medicine; Internal Medicine Gastroenterology; Physician Assistant; Admitting Provider Internal Medicine; Emergency Provider Emergency Medicine; PCP Internal Medicine Gastroenterology; Visit Provider Internal Medicine
PROC: 0DJ08ZZ Inspection of Upper Intestinal Tract, Via Natural or Artificial Opening Endoscopic (ICD-10-PCS; CPT 43235; principal; 2021-03-28 14:00)
DX: K26.0 Acute duodenal ulcer with hemorrhage (principal); B96.81 Helicobacter pylori [H. pylori] as the cause of diseases classified elsewhere; I10 Essential (primary) hypertension; N28.1 Cyst of kidney, acquired
CPT/HCPCS: 43255; 43239; 36415; 71046; 74177; 76775; 80048; 80076; 83690; 84484; 85014; 85018; 85025; 86850; 86900; 86901; 87081; 93005; 96361; 96374; 96375; 96376; 99285; A9270; C9113; G0378; G0379; J1170; J2001; J2704; J7030; J7060; J7120; Q9967

== ENCOUNTER 2023-02-16 09:19 | Emergency (ER) | payer OTHER, SELFPAY ==
--- NOTE | ~2023-02-16 | CT_ITS ---
EXAMINATION: CT brain wo con DATE: 02/16/2023 11:08 INDICATION: Headache. TECHNIQUE: Computed tomography (CT) of the head was performed without intravenous contrast. The mA wa s adjusted according to patient size. Iterative reconstruction technique was employed. The dose-lengt h product was 605.33 mGy-cm. COMPARISON: Head CT 06/13/2018 FINDINGS: There is no intracranial hemorrhage, acute infarction, or abnormal intracranial mass lesion . The ventricles are normal in size. There is mild mucosal thickening in the ethmoid sinuses. The mas toid air cells are normal. The orbits are normal. IMPRESSION: 1. Normal brain. Reviewed, dictated and finalized at location A. IMPRESSION: 1. Normal brain.
[2023-02-16 09:23] VITALS: BP 187/116; PULSE 108; RESP 16; TEMP 36.4; O2SAT 100
[2023-02-16 10:34] VITALS: BP 169/109; PULSE 78; RESP 18; O2SAT 97
[2023-02-16 10:50] LABS: Basophils Percent Auto 0.7 % (0.2-1.2); Eosinophils Absolute Auto 0.1 K/mm3 (0-0.3); Eosinophils Percent Auto 1.1 % (0-4.4); Hematocrit 48.5 % (42.0-52.0); Hemoglobin 16.5 g/dL (14.0-18.0); Immature Granulocyte Absolute 0.01 K/mm3 (0.00-0.031); Immature Granulocyte Percent A 0.2 % (0-0.5); Lymphocytes Absolute Auto 1.53 K/mm3 (0.9-3.2); Lymphocytes Percent Auto 27.2 % (18.3-44.2); Mean Corpuscular Hemoglobin 29.6 pg (26-34); Mean Corpuscular Volume 86.9 fl (80-100); Monocytes Absolute Auto 0.5 K/mm3 (0.1-0.6); Neutrophils Absolute Auto 3.5 K/mm3 (1.3-6.7); Neutrophils Percent Auto 62.8 % (45.5-73.1); Platelet Count Result 238 k/mm3 (150-375); Red Blood Count 5.58 M/mm3 (4.6-6.20); White Blood Count 5.6 K/mm3 (4.5-10.0)
[2023-02-16] MEDS: SODIUM CHLORIDE 0.9% IV 1,000 ML 999 ML IV CONT (11:22)
[2023-02-16] MEDS: KETOROLAC 30 MG/ML VIAL (*BKC) IV PUSH (11:28)
[2023-02-16] MEDS: PROCHLORPERAZINE EDISYLATE 10 MG/2 ML VIAL IV PUSH (11:29)
[2023-02-16 11:48] LABS: Alanine Aminotransferase 42 U/L (6-50); Albumin Level 4.2 g/dL (3.5-5.1); Alkaline Phosphatase 74 U/L (38-126); Anion Gap 5 mmol/L (8-16); Aspartate Amino Transferase 39 U/L (17-59); Bilirubin,Total 0.4 mg/dL (0.2-1.3); Blood Urea Nitrogen 12 mg/dL (9-20); Calcium 9.3 mg/dL (8.4-10.2); Carbon Dioxide 29 mmol/L (22-30); Chloride 102 mmol/L (98-107); Estimated CRCL calculation 67 ml/min; Estimated Glomerular Filt Rate > 60; Glucose 130 mg/dL (65-110); Potassium 3.5 mmol/L (3.4-5.0); Sodium 136 mmol/L (137-145)
--- NOTE | 2023-02-16 13:12 | ED.GENADULT ---
HPI - General Adult General Chief complaint: Headache Stated complaint: headache Time Seen by Provider: 02/16/23 10:45 History of Present Illness HPI narrative: Chanell Smith is a 57 y/o male who presents with reports of a headache for the past 2- 3months. He states that when he wakes up in the morning he has a headache. He denies any vision changes/ weakness/numbness/tingling / chest pain/ shortness of breath/ abdominal pain/ nausea/vomiting Related Data Home Medications Medication Instructions Recorded Confirmed Miralax 1 packet PO DAILY CONSTIPATION 03/27/21 03/27/21 hydrochlorothiazide 25 mg tablet 25 mg PO DAILY 03/27/21 03/27/21 Allergies Allergy/AdvReac Type Severity Reaction Status Date / Time No Known Allergies Allergy Verified 03/28/21 13:12 Review of Systems Review of Systems: CONSTITUTIONAL: Denies fever, chills, or sweats. EYES: Denies visual changes, redness, or discharge. ENT: Denies rhinorrhea, congestion, sore throat, or otalgia. CARDIOVASCULAR: Denies chest pain, palpitations, or edema. RESPIRATORY: Denies cough or dyspnea. GASTROINTESTINAL: Denies abdominal pain, nausea, vomiting, or diarrhea. GENITOURINARY: Denies dysuria or hematuria. SKIN: Denies rash or itching. MUSCULOSKELETAL: Denies back pain, joint pain, or myalgia. NEUROLOGIC: Reports headache, Denies numbness, dizziness, or weakness. PSYCHIATRIC: Denies anxiety or depression. [facility] Past Medical History Medical History Acute blood loss anemia HTN (hypertension) with goal to be determined Obesity Family History Family History Other Unknown family medical history Social History Social History Smoking status: Never smoker Alcohol intake: never Substance use: never Substance use type: does not use Spiritual care concerns: No Exam Narrative: GENERAL: Well-appearing, well-nourished, and in no acute distress. HEAD: Normocephalic, atraumatic. EYES: PERRLA and EOMI. ENT: Nares clear, no rhinorrhea or epistaxis. Mucous membranes moist. NECK: Supple. No adenopathy or masses. No carotid bruits or JVD CHEST: Clear to auscultation. No respiratory distress. No wheezes rales or rhonchi HEART: Regular rate and rhythm. No murmur heard. Normal peripheral pulses. ABDOMEN: Soft, nontender, nondistended, normal active bowel sounds. EXTREMITIES: Normal range of motion. No edema. SKIN: Warm, dry, no rash. NEURO: No focal deficits. Alert and oriented x3. PSYCH: Normal mood and affect. Course Vital Signs Vital signs: Vital Signs Temperature 36.4 C L 02/16/23 09:23 Pulse Rate 108 H 02/16/23 09:23 Respiratory Rate 16 02/16/23 09:23 Blood Pressure 187/116 H 02/16/23 09:23 Pulse Oximetry 100 02/16/23 09:23 Oxygen Delivery Room Air 02/16/23 09:23 Temperature 36.4 C L 02/16/23 09:23 Pulse Rate 78 02/16/23 10:34 Respiratory Rate 18 02/16/23 10:34 Blood Pressure 169/109 H 02/16/23 10:34 Pulse Oximetry 97 02/16/23 10:34 Oxygen Delivery Room Air 02/16/23 09:23 Medical Decision Making MDM Narrative Medical decision making narrative: Patient reports he has had a headache for about 2-3 months he states that it moves across his head from the left side to the right side. He states it comes and goes and he sometimes notices it when he wakes up in the morning. Denies vision changes/ denies numbness tingling Neuro exam intact no focal weaknesses appreciated on exam Patient does have a hx of htn and bp is a little elevated here. Plan to treat his pain and check head ct and basic lab work Patient agres with plan Patient re-evaluated and states his headache is gone and he is feeling much better Patient will be d/c home with close follow up with his PCP Discussed with pt to check his b/p once daily at home and keep a log to
[2023-02-16 14:33] VITALS: BP 167/101; PULSE 63; RESP 18; O2SAT 99
== END 2023-02-16 14:35 | disposition home or self-care (01) ==
PROVIDERS: Emergency Medicine; Emergency Provider Nurse Practitioner Family; PCP Internal Medicine Gastroenterology
DX: G43.909 Migraine, unspecified, not intractable, without status migrainosus (principal); I10 Essential (primary) hypertension
CPT/HCPCS: 36415; 70450; 80053; 85025; 96361; 96374; 96375; 99284; J0780; J1100; J1885; J7030

== ENCOUNTER 2023-11-15 08:30 | Outpatient (RCR) | payer OTHER, SELFPAY ==
[2023-10-13 10:44] VITALS: BMI 34.5
[2023-10-13 10:45] VITALS: BMI 34.5
[2023-11-15 08:26] VITALS: BMI 34.5
[2023-11-15 08:30] VITALS: BMI 34.5
== END 2023-12-28 14:16 | disposition home or self-care (01) ==
LOC: ANHDMC 08:30
PROVIDERS: PCP Internal Medicine Gastroenterology; Visit Provider Internal Medicine Gastroenterology
DX: E11.9 Type 2 diabetes mellitus without complications (principal); Z71.3 Dietary counseling and surveillance
CPT/HCPCS: 97802; 97803

== ENCOUNTER 2023-11-29 15:14 | Outpatient (CLI) | payer OTHER, SELFPAY ==
--- NOTE | ~2023-11-29 | US_ITS ---
EXAMINATION: US soft tissue head and neck, US soft tissue upper back DATE: 11/29/2023 16:04 INDICATION: Palpable masses at the left upper back and posterior to the left ear TECHNIQUE: Multiple grayscale and Doppler ultrasound images of the 2 regions of concern, posterior to the left ear and at the left upper back were obtained. COMPARISON: Head CT dated 02/16/2023 FINDINGS: There is a 2.0 x 1.0 x 2.2 cm ovoid hypoechoic mass in the subcutaneous tissues posterior to the left ear. This corresponds to a macroscopic fat attenuation lipoma evident at this location on prior CT d ated 02/16/2023. There is a second larger 4.5 x 2.6 x 2.1 cm ovoid similar-appearing hypoechoic mass at the second region of concern at the left upper back also statistically most likely with appearance m ost consistent with a second lipoma. IMPRESSION: 1. 2.2 cm ovoid lipoma posterior to the left ear this can also be seen on prior head CT with diagnost ic macroscopic fat attenuation. 2. 4.5 cm mass at the second region of concern with similar appearance most likely representing a sec ond lipoma. Reviewed, dictated and finalized at location A. IMPRESSION: 1. 2.2 cm ovoid lipoma posterior to the left ear this can also be seen on prior head CT with diagnostic macroscopic fat attenuation. 2. 4.5 cm mass at the second region of concern with similar appearance most lik [place] representing a second lipoma.
== END 2023-11-29 15:15 | disposition home or self-care (01) ==
LOC: ANHIMG 15:15
PROVIDERS: PCP Internal Medicine Gastroenterology; Visit Provider Internal Medicine Gastroenterology
DX: D17.0 Benign lipomatous neoplasm of skin and subcutaneous tissue of head, face and neck (principal)
CPT/HCPCS: 76536; 76604